=== PATIENT | male | born 1975 | race Caucasian/White ===

== ENCOUNTER 2016-07-04 05:26 | Emergency (ER) | payer BC ==
[~2016-07-04] VITALS: Ht 180.3 cm; Wt 89.8 kg
[2016-07-04 05:40] VITALS: BP_SYST 115
--- NOTE | 2016-07-04 05:40 | NUR ---
Patient to ER bed 2 to gown for evaluation. Side rails up. Report given to Denzel YANG.
--- NOTE | 2016-07-04 05:45 | NUR ---
Patient arrived to ED a/o x 4 with c/o L sided jaw pain after syncope episode resulting in fall. States aching 5/10 pain that hasnt been relieved by tylenol at home. Patient reports hitting jaw on the corner of a dressor. States feeling lightheaded since this morning. No obvious deformity noted to the jaw. Denies N/V. Minimal swelling present. Hx. of syncope. Does not appear in immediate distress at this time. Will continue to monitor.
--- NOTE | 2016-07-04 06:00 | NUR ---
ED MD Earl at bedside for medical evaluation.
--- NOTE | 2016-07-04 06:43 | NUR ---
Patient given written and verbal discharge instructions and verbalizes understanding. ER MD discussed with patient the results and treatment provided. Patient in stable condition. ID arm band removed. No Rx given. Patient educated on pain management and to follow up with PMD. Pain Scale 2/10. Opportunity for questions provided and answered.
[2016-07-04 06:44] VITALS: BP_SYST 115
== END 2016-07-04 06:44 | disposition home or self-care (01) ==
LOC: SED 05:26
DX: S00.83XA Contusion of other part of head, initial encounter (principal); S80.02XA Contusion of left knee, initial encounter; S50.02XA Contusion of left elbow, initial encounter; R55 Syncope and collapse; W06.XXXA Fall from bed, initial encounter; Y93.89 Activity, other specified; Y92.89 Other specified places as the place of occurrence of the external cause; Y99.8 Other external cause status
CPT/HCPCS: 99281